=== PATIENT | female | born 2000 | race American Indian/Alaskan Native ===

== ENCOUNTER 2024-05-23 23:34 | Emergency (ER) | payer MEDICAID ==
[2024-05-23 23:34] VITALS: BP 147/81; TEMP 98.2
[~2024-05-23 23:34] MED LIST: ACET1TAB12 PO; IBUP-1984 PO; ONDA8TAB6 PO
[2024-05-24] MEDS: ketorolac trometh 30MG/ML vial 30 MG/ML VIAL IM ONE (00:34)
[2024-05-24 00:41] VITALS: PULSE 87; RESP 16; O2SAT 98
== END 2024-05-24 00:44 | disposition home or self-care (01) ==
LOC: ER 23:34
DX: S39.012A Strain of muscle, fascia and tendon of lower back, initial encounter (principal); Z79.1 Long term (current) use of non-steroidal anti-inflammatories (NSAID); Z79.899 Other long term (current) drug therapy; X58.XXXA Exposure to other specified factors, initial encounter; Y93.89 Activity, other specified; Y92.89 Other specified places as the place of occurrence of the external cause; Y99.8 Other external cause status
CPT/HCPCS: 96372; 99283; J1885